=== PATIENT | male | born 1950 | race Caucasian/White ===

== ENCOUNTER 2017-01-13 09:16 | Day surgery (SDC) | payer MEDICAID, MEDICARE ==
[~2017-01-13] VITALS: Ht 167.6 cm; Wt 77.2 kg
[~2017-01-13 09:16] MED LIST: BACL20TA PO; GABA-827 PO
[2017-01-13] MEDS ORDERED: BENZOCAINE AEROSOL SPRAY 20%, 60ML TP PRN (09:30)
[2017-01-13] MEDS ORDERED: SODIUM CHLORIDE 0.9% 1,000 ML IV SCH (09:30)
[2017-01-13] MEDS ORDERED: LIDOCAINE 2% VISCOUS, 100ML MM PRN (09:30)
[2017-01-13] MEDS ORDERED: LISI2.5T PO (09:33)
[2017-01-13] MEDS ORDERED: CARV3.1212 PO (09:33)
[2017-01-13] MEDS ORDERED: CLOP75TA22 PO (09:33)
[2017-01-13] MEDS ORDERED: ASPI-515 PO (09:33)
[2017-01-13] MEDS ORDERED: ATOR80TA PO (09:33)
[2017-01-13 09:43] VITALS: BP 132/98
[2017-01-13] MEDS ORDERED: PLEASE ENTER HEIGHT AND WEIGHT MC SCH (10:00)
[2017-01-13] MEDS ORDERED: PROPOFOL 10 MG/ML, 20ML ONE (10:57)
== END 2017-01-13 12:30 | disposition home or self-care (01) ==
LOC: CACL 09:16
PROVIDERS: ATTEND Internal Medicine Cardiovascular Disease
DX: I34.0 Nonrheumatic mitral (valve) insufficiency (principal); I35.1 Nonrheumatic aortic (valve) insufficiency; I36.1 Nonrheumatic tricuspid (valve) insufficiency; I10 Essential (primary) hypertension; F17.210 Nicotine dependence, cigarettes, uncomplicated; I25.10 Atherosclerotic heart disease of native coronary artery without angina pectoris; I25.2 Old myocardial infarction; I25.5 Ischemic cardiomyopathy; D15.1 Benign neoplasm of heart; Z98.61 Coronary angioplasty status; Z95.0 Presence of cardiac pacemaker; E78.2 Mixed hyperlipidemia
CPT/HCPCS: 93312; 93325; J2704

== ENCOUNTER 2017-03-27 04:19 | Inpatient (IN) | payer MEDICARE ==
[2017-03-26 14:11] LABS: ASPARTATE AMINO TRANSFERASE 15 U/L (15-37); BLOOD UREA NITROGEN 13 mg/dL (7-18)
[~2017-03-27] VITALS: Ht 167.6 cm; Wt 81.8 kg
[~2017-03-27 04:19] MED LIST changes: +ASPI-515 PO; +ATOR80TA PO; +CARV3.1212 PO; +CLOP75TA22 PO; +LISI2.5T PO
[2017-03-27 04:40] VITALS: BP_SYST 113; BP_SYST 119; BP_DIAS 77; BP_DIAS 83
[2017-03-27] MEDS ORDERED: ALBUMIN HUMAN 5% 500 ML IV ONE (05:00)
[2017-03-27] MEDS ORDERED: CHLORHEXIDINE MOUTHWASH 15 ML UDC MM SCH (05:00)
[2017-03-27] MEDS: MUPIROCIN OINT 2%, 22GM TP SCH ×2 (05:44→20:08)
[2017-03-27] MEDS ORDERED: INSULIN ASPART 100 UNITS/ML, PEN SQ-INSULIN SCH (06:00)
[2017-03-27] MEDS ORDERED: FENTANYL PF 1000 MCG/20ML ONE (06:42)
[2017-03-27] MEDS ORDERED: MIDAZOLAM 10MG/2 ML ONE (06:42)
[2017-03-27] MEDS ORDERED: ROCURONIUM 10 MG/ML ONE ×2 (07:15)
[2017-03-27] MEDS ORDERED: EPINEPHRINE 1 MG/ML, 1ML ONE (07:15)
[2017-03-27] MEDS ORDERED: PROPOFOL 10 MG/ML, 20ML ONE ×2 (07:15)
[2017-03-27] MEDS ORDERED: DEXAMETHASONE 4 MG/ML, 1ML ONE (07:15)
[2017-03-27] MEDS ORDERED: PHENYLEPHRINE 10 MG in SODIUM CHLORIDE 0.9% 249 ML IV PRN ×2 (07:30→09:50)
[2017-03-27] MEDS ORDERED: VANCOMYCIN 1,200 MG in SODIUM CHLORIDE 0.9% 250 ML IV PRN (07:30)
[2017-03-27] MEDS ORDERED: POTASSIUM CHLORIDE 80 MEQ, SODIUM BICARBONATE 8.4% 10 MEQ, MAGNESIUM SULFATE 0.5 GM, LI... IV PRN (07:30)
[2017-03-27] MEDS ORDERED: EPINEPHRINE 2 MG in SODIUM CHLORIDE 0.9% 248 ML IV SCH (07:30)
[2017-03-27] MEDS ORDERED: MANNITOL PMX 20% 500 ML IVPB PRN (07:30)
[2017-03-27] MEDS ORDERED: DEXMEDETOMIDINE 200 MCG in SODIUM CHLORIDE 0.9% 48 ML IV SCH (07:30)
[2017-03-27] MEDS ORDERED: REGULAR INSULIN 62.5 UNITS in SODIUM CHLORIDE 0.9% 249.375 ML IV PRN ×2 (07:30→09:50)
[2017-03-27] MEDS ORDERED: PROTAMINE SULFATE 10 MG/ML, 25ML ONE ×2 (08:46)
[2017-03-27] MEDS ORDERED: AMINOCAPROIC ACID 250 MG/ML, 20ML ONE ×2 (08:47)
[2017-03-27] MEDS: SODIUM CHLORIDE FLUSH 10ML SYR IVF SCH ×3 (09:00→20:06)
[2017-03-27] MEDS ORDERED: CALCIUM CHLORIDE 10%, 10ML SYR ONE (09:13)
[2017-03-27] MEDS ORDERED: DOBUTAMINE 250 MG in SODIUM CHLORIDE 0.9% 230 ML IV PRN (09:50)
[2017-03-27] MEDS ORDERED: NITROGLYCERIN/D5W PMX 250 ML IV PRN (09:50)
[2017-03-27] MEDS ORDERED: SODIUM CHLORIDE 0.9% 1,000 ML IV PRN (09:50)
[2017-03-27] MEDS ORDERED: DEXMEDETOMIDINE 200 MCG in SODIUM CHLORIDE 0.9% 48 ML IV PRN (09:50)
[2017-03-27] MEDS ORDERED: SODIUM CHLORIDE 0.9% 1,000 ML IV ONE (09:50)
[2017-03-27] MEDS ORDERED: LIDOCAINE 2% 100MG/5ML SYRINGE ONE (09:52)
[2017-03-27] MEDS ORDERED: SODIUM BICARB 8.4%, 50ML SYRINGE ONE (09:53)
[2017-03-27] MEDS ORDERED: SODIUM BICARBONATE 1 MEQ/ML, 50ML VIAL ONE (09:53)
[2017-03-27] MEDS ORDERED: ALBUMIN HUMAN 25% 50 ML ONE (09:54)
[2017-03-27] MEDS ORDERED: HEPARIN 1,000 UNITS/ML, 30ML ONE (09:54)
[2017-03-27] MEDS ORDERED: SODIUM BICARB 8.4%, 50ML SYRINGE IV PRN (10:00)
[2017-03-27] MEDS ORDERED: LACTATED RINGERS 500 ML IVBOLUS PRN (10:00)
[2017-03-27] MEDS: KSCALE TO 4.5 IV SCH ×3 (10:00→22:00)
[2017-03-27] MEDS ORDERED: PROCHLORPERAZINE 5 MG/ML, 2ML IVPush PRN (10:00)
[2017-03-27] MEDS ORDERED: GLUCAGON 1 MG IM PRN (10:00)
[2017-03-27] MEDS ORDERED: DEXTROSE 4 GM TAB.CHEW PO PRN (10:00)
[2017-03-27] MEDS ORDERED: ACETAMINOPHEN 650 MG SUPP PR PRN (10:00)
[2017-03-27] MEDS ORDERED: ONDANSETRON 2MG/ML, 2ML IVPush PRN (10:00)
[2017-03-27] MEDS ORDERED: MIDAZOLAM 1 MG/ML, 5ML IVPush PRN (10:00)
[2017-03-27] MEDS ORDERED: ACETAMINOPHEN 325 MG TABLET PO PRN (10:00)
[2017-03-27] MEDS ORDERED: MEPERIDINE/PF 25MG/0.5ML IVPush PRN (10:00)
[2017-03-27] MEDS ORDERED: BISACODYL 10 MG SUPP PR PRN (10:00)
[2017-03-27] MEDS ORDERED: DEXTROSE 50%, 50ML SYRINGE IVPush PRN (10:00)
[2017-03-27 10:08] LABS: ABG COLLECTION SITE NOT DOCUMENTED
[2017-03-27] MEDS: morphine SULFATE 10 MG/ML, 1ML IVPush PRN ×2 (11:00→12:25)
[2017-03-27] MEDS: MAGNESIUM SULFATE 1 GM in SODIUM CHLORIDE 0.9% 50 ML IVPB SCH (11:05)
[2017-03-27] MEDS: OXYcodone IR 5MG TABLET PO PRN ×2 (13:44→18:31)
[2017-03-27] MEDS ORDERED: KETOROLAC 30 MG/1 ML IM PRN (15:00)
[2017-03-27] MEDS ORDERED: POTASSIUM CHLORIDE PMX 100 ML IV ONE (17:00)
[2017-03-27] MEDS: CEFUROXIME 1.5 GM in SODIUM CHLORIDE 0.9% 50 ML IVPB SCH (17:45)
[2017-03-27] MEDS: VANCOMYCIN 1,200 MG in SODIUM CHLORIDE 0.9% 250 ML IVPB SCH (19:08)
[2017-03-27] MEDS: MUPIROCIN OINT 2%, 22GM NAS SCH (20:07)
[2017-03-27] MEDS: DOCUSATE 100 MG CAPSULE PO SCH (20:07)
[2017-03-27] MEDS: EPINEPHRINE 2 MG in SODIUM CHLORIDE 0.9% 248 ML IV PRN (20:08)
[2017-03-27] MEDS: HYDROcodone/APAP 10/325 MG TABLET PO PRN (20:59)
[2017-03-28] MEDS: HYDROcodone/APAP 10/325 MG TABLET PO PRN ×2 (01:51→09:00)
[2017-03-28 03:45] VITALS: BP 108/51
[2017-03-28] MEDS: INSULIN ASPART 100 UNITS/ML, PEN SQ-INSULIN PRN ×4 (03:47→16:01)
[2017-03-28 03:50] LABS: ABG COLLECTION SITE NOT DOCUMENTED
[2017-03-28] MEDS: KSCALE TO 4.5 IV SCH ×4 (04:00→22:00)
[2017-03-28 04:03] LABS: BLOOD UREA NITROGEN 8 mg/dL (7-18)
[2017-03-28] MEDS ORDERED: POTASSIUM CHLORIDE PMX 100 ML IV ONE (04:30)
[2017-03-28] MEDS: OXYcodone IR 5MG TABLET PO PRN ×3 (04:46→17:43)
[2017-03-28] MEDS: EPINEPHRINE 2 MG in SODIUM CHLORIDE 0.9% 248 ML IV PRN (06:09)
[2017-03-28] MEDS: CEFUROXIME 1.5 GM in SODIUM CHLORIDE 0.9% 50 ML IVPB SCH (07:07)
[2017-03-28] MEDS: VANCOMYCIN 1,200 MG in SODIUM CHLORIDE 0.9% 250 ML IVPB SCH (08:22)
[2017-03-28] MEDS: SODIUM CHLORIDE FLUSH 10ML SYR IVF SCH ×4 (09:00→21:09)
[2017-03-28] MEDS: DOCUSATE 100 MG CAPSULE PO SCH ×2 (09:50→21:10)
[2017-03-28] MEDS: ASPIRIN 325 MG TABLET EC PO SCH (09:50)
[2017-03-28] MEDS: MUPIROCIN OINT 2%, 22GM NAS SCH ×2 (09:50→21:10)
[2017-03-28] MEDS: PANTOPRAZOLE 40 MG IV IVPush SCH (09:50)
[2017-03-28] MEDS: MAGNESIUM SULFATE 1 GM in SODIUM CHLORIDE 0.9% 50 ML IVPB SCH (10:37)
[2017-03-28] MEDS: CHLORHEXIDINE MOUTHWASH 15 ML UDC MM SCH ×2 (10:38→22:30)
[2017-03-28] MEDS: KETOROLAC 30 MG/1 ML IV PRN (22:19)
[2017-03-29 04:00] VITALS: BP 92/63
[2017-03-29] MEDS: KSCALE TO 4.5 IV SCH ×2 (04:00→04:33)
[2017-03-29] MEDS: KETOROLAC 30 MG/1 ML IV PRN (04:29)
[2017-03-29 05:02] LABS: BLOOD UREA NITROGEN 9 mg/dL (7-18)
[2017-03-29] MEDS: SODIUM CHLORIDE FLUSH 10ML SYR IVF SCH ×2 (09:11)
[2017-03-29] MEDS: PANTOPRAZOLE 40 MG IV IVPush SCH ×2 (09:11→09:43)
[2017-03-29] MEDS: ASPIRIN 325 MG TABLET EC PO SCH (09:12)
[2017-03-29] MEDS: MUPIROCIN OINT 2%, 22GM NAS SCH ×2 (09:12→09:43)
[2017-03-29] MEDS: DOCUSATE 100 MG CAPSULE PO SCH ×2 (09:12→20:49)
[2017-03-29] MEDS: CHLORHEXIDINE MOUTHWASH 15 ML UDC MM SCH ×2 (09:12→20:50)
[2017-03-29] MEDS: HYDROcodone/APAP 10/325 MG TABLET PO PRN ×3 (09:16→20:49)
[2017-03-29] MEDS: MAGNESIUM SULFATE 1 GM in SODIUM CHLORIDE 0.9% 50 ML IVPB SCH (10:37)
[2017-03-29] MEDS: ENOXAPARIN 40 MG/0.4 ML SQ SCH (11:39)
[2017-03-29] MEDS: NICOTINE 14MG/24 HR PATCH.TD24 TD SCH (11:40)
[2017-03-29] MEDS: INSULIN ASPART 100 UNITS/ML, PEN SQ-INSULIN PRN ×2 (11:40→20:50)
[2017-03-29 12:49] VITALS: BP 127/84
[2017-03-29 19:53] VITALS: BP 108/75
[2017-03-30 01:23] VITALS: BP 102/69
[2017-03-30 06:02] LABS: BLOOD UREA NITROGEN 12 mg/dL (7-18)
[2017-03-30] MEDS: HYDROcodone/APAP 10/325 MG TABLET PO PRN ×2 (06:05→22:50)
[2017-03-30] MEDS: INSULIN ASPART 100 UNITS/ML, PEN SQ-INSULIN PRN ×2 (06:13→07:46)
[2017-03-30 07:48] VITALS: BP_SYST 98; BP_SYST 99; BP_DIAS 68
[2017-03-30] MEDS ORDERED: CLOPIDOGREL 75 MG TABLET PO SCH (09:00)
[2017-03-30 09:27] VITALS: BP 119/75
[2017-03-30] MEDS: CLOPIDOGREL 75 MG TABLET PO SCH (09:31)
[2017-03-30] MEDS: BISACODYL 5 MG EC TABLET PO PRN (09:31)
[2017-03-30] MEDS: DOCUSATE 100 MG CAPSULE PO SCH ×2 (09:31→20:53)
[2017-03-30] MEDS: MUPIROCIN OINT 2%, 22GM NAS SCH ×2 (09:31→20:53)
[2017-03-30] MEDS: ASPIRIN 325 MG TABLET EC PO SCH (09:31)
[2017-03-30] MEDS: NICOTINE 14MG/24 HR PATCH.TD24 TD SCH (11:33)
[2017-03-30] MEDS: ENOXAPARIN 40 MG/0.4 ML SQ SCH (11:34)
[2017-03-30 15:17] VITALS: BP 107/71
[2017-03-30 19:52] VITALS: BP 114/77
[2017-03-31] MEDS: OXYcodone IR 5MG TABLET PO PRN (01:17)
[2017-03-31 01:59] VITALS: BP 111/76
[2017-03-31 05:44] LABS: BLOOD UREA NITROGEN 14 mg/dL (7-18)
[2017-03-31 08:10] VITALS: BP 131/76
[2017-03-31] MEDS: PANTOPRAZOLE 40 MG IV IVPush SCH (09:00)
[2017-03-31] MEDS: CLOPIDOGREL 75 MG TABLET PO SCH (09:44)
[2017-03-31] MEDS: ASPIRIN 325 MG TABLET EC PO SCH (09:44)
[2017-03-31] MEDS: MUPIROCIN OINT 2%, 22GM NAS SCH ×2 (09:44→20:52)
[2017-03-31] MEDS: BISACODYL 5 MG EC TABLET PO PRN (09:44)
[2017-03-31] MEDS: DOCUSATE 100 MG CAPSULE PO SCH ×2 (09:44→20:51)
[2017-03-31] MEDS ORDERED: MAGNESIUM HYDROXIDE 8%, 30ML UDC PO PRN (10:00)
[2017-03-31] MEDS: HYDROcodone/APAP 10/325 MG TABLET PO PRN ×2 (11:22→20:51)
[2017-03-31] MEDS: PANTOPROZOLE 40MG TABLET PO SCH (11:22)
[2017-03-31] MEDS: ENOXAPARIN 40 MG/0.4 ML SQ SCH (11:23)
[2017-03-31] MEDS: NICOTINE 14MG/24 HR PATCH.TD24 TD SCH (11:23)
[2017-03-31 12:57] VITALS: BP 114/77
[2017-03-31] MEDS: POTASSIUM CHLORIDE 10 MEQ TABLET.ER PO SCH (18:24)
[2017-03-31 20:28] VITALS: BP 119/81
[2017-03-31] MEDS: FUROSEMIDE 20 MG/2 ML IV SCH (20:52)
[2017-04-01 01:55] VITALS: BP 113/78
[2017-04-01] MEDS: HYDROcodone/APAP 10/325 MG TABLET PO PRN ×2 (04:21→12:08)
[2017-04-01 05:59] LABS: BLOOD UREA NITROGEN 14 mg/dL (7-18)
[2017-04-01 07:50] VITALS: BP 100/60
[2017-04-01] MEDS: DOCUSATE 100 MG CAPSULE PO SCH (08:28)
[2017-04-01] MEDS: POTASSIUM CHLORIDE 10 MEQ TABLET.ER PO SCH (08:28)
[2017-04-01] MEDS: PANTOPROZOLE 40MG TABLET PO SCH (08:28)
[2017-04-01] MEDS: MUPIROCIN OINT 2%, 22GM NAS SCH (08:28)
[2017-04-01] MEDS: CLOPIDOGREL 75 MG TABLET PO SCH (08:28)
[2017-04-01] MEDS: ASPIRIN 325 MG TABLET EC PO SCH (08:28)
[2017-04-01] MEDS: FUROSEMIDE 20 MG/2 ML IV SCH (08:29)
[2017-04-01] MEDS ORDERED: NICO1PAT4 TD (09:19)
[2017-04-01] MEDS: NICOTINE 14MG/24 HR PATCH.TD24 TD SCH (12:09)
[2017-04-01] MEDS ORDERED: HYDR-3307 PO (14:56)
[2017-04-01] MEDS ORDERED: ALPR0.25 PO (14:57)
== END 2017-04-01 16:25 | disposition home health service (06) | DRG 228 ==
LOC: 5SO 04:19 → CCU 08:14 → 5SO 03-29 12:41 → DCLOUNGE 04-01 15:57
PROVIDERS: ADMIT Thoracic Surgery (Cardiothoracic Vascular Surgery); ATTEND Thoracic Surgery (Cardiothoracic Vascular Surgery)
PROC: B245ZZ4 Ultrasonography of Left Heart, Transesophageal (ICD-10-PCS; 2017-03-27)
PROC: 5A1221Z Performance of Cardiac Output, Continuous (ICD-10-PCS; 2017-03-27)
PROC: 02B70ZZ Excision of Left Atrium, Open Approach (ICD-10-PCS; principal; 2017-03-27 07:30)
DX: D15.1 Benign neoplasm of heart (principal); I50.43 Acute on chronic combined systolic (congestive) and diastolic (congestive) heart failure; J98.11 Atelectasis; I27.2 Other secondary pulmonary hypertension; E78.5 Hyperlipidemia, unspecified; F17.200 Nicotine dependence, unspecified, uncomplicated; I07.1 Rheumatic tricuspid insufficiency; I11.0 Hypertensive heart disease with heart failure; I25.5 Ischemic cardiomyopathy; I45.9 Conduction disorder, unspecified; Z95.0 Presence of cardiac pacemaker; I25.2 Old myocardial infarction; Z88.0 Allergy status to penicillin
CPT/HCPCS: 36415; 36600; 71010; 71020; 80048; 80053; 81003; 82040; 82330; 82800; 82803; 82810; 82947; 82962; 83036; 83735; 84132; 84295; 85014; 85018; 85025; 85049; 85347; 85610; 85730; 86850; 86900; 86923; 87081; 88304; 93005; 93312; 93321; 93325; 93880; 94002; J0171; J0697; J1100; J1644; J1650; J1815; J1885; J2250; J2405; J2704; J2720; J3010; J3370; J3475; J3480; J3490; P9045; P9047; C1751; C1760; C9113; J1940; J2270; J2370; J7030; J7050

== ENCOUNTER → 2019-07-15 | Outpatient (CLI) | payer MEDICARE ==
[~2019-07-15] MED LIST changes: +ALPR0.25 PO; -CLOP75TA22 PO; +CLOP75TA52 PO; +HYDR-36 PO; +NICO-486 TD
== END | disposition home or self-care (01) ==
LOC: CFH 09:29
PROVIDERS: ATTEND Internal Medicine Cardiovascular Disease
DX: I08.3 Combined rheumatic disorders of mitral, aortic and tricuspid valves (principal); D15.1 Benign neoplasm of heart; I10 Essential (primary) hypertension; E78.5 Hyperlipidemia, unspecified; F17.200 Nicotine dependence, unspecified, uncomplicated; F15.10 Other stimulant abuse, uncomplicated; Z82.49 Family history of ischemic heart disease and other diseases of the circulatory system
CPT/HCPCS: 93306

== ENCOUNTER 2019-11-16 09:19 | Emergency (ER) | payer MEDICARE, MEDICAID ==
[~2019-11-16] VITALS: Ht 167.6 cm; Wt 79.9 kg
[2019-11-16 09:32] VITALS: BP 149/93
[2019-11-16] MEDS ORDERED: DIAZEPAM 5 MG TABLET ONE (10:54)
[2019-11-16] MEDS ORDERED: OXYcodone/APAP 5/325MG TABLET ONE (10:55)
--- NOTE | 2019-11-16 10:58 | NUR ---
medicated for low back pain, l knee pain, sciatica type pain with numbness to left foot
[2019-11-16] MEDS ORDERED: OXYcodone/APAP 5/325MG TABLET PO ONE (11:00)
[2019-11-16] MEDS ORDERED: DIAZEPAM 5 MG TABLET PO ONE (11:00)
--- NOTE | 2019-11-16 12:23 | NUR ---
some improvement in pain since medicated. states mobility improved as walking to discharge window without assistance
== END 2019-11-16 12:25 | disposition home or self-care (01) ==
LOC: ED 12:19
DX: M25.562 Pain in left knee (principal); M54.5 Low back pain; G89.29 Other chronic pain; I10 Essential (primary) hypertension
CPT/HCPCS: 99283

== ENCOUNTER → 2019-12-30 | Outpatient (CLI) | payer MEDICARE | END | disposition home or self-care (01) | LOC: CFH 08:28 | PROVIDERS: ATTEND Internal Medicine Cardiovascular Disease | DX: I08.1 Rheumatic disorders of both mitral and tricuspid valves (principal); I25.5 Ischemic cardiomyopathy; I10 Essential (primary) hypertension | CPT/HCPCS: 93306 ==

== ENCOUNTER → 2020-12-11 | Outpatient (CLI) | payer MEDICARE, MEDICAID ==
[~2020-12-11] MED LIST changes: -ASPI-515 PO; +ASPI-963 PO; +HYDR-3248 PO; -HYDR-36 PO
== END | disposition home or self-care (01) ==
LOC: CFH 12:39
PROVIDERS: ATTEND Internal Medicine Cardiovascular Disease
DX: I08.3 Combined rheumatic disorders of mitral, aortic and tricuspid valves (principal); I42.9 Cardiomyopathy, unspecified; I27.20 Pulmonary hypertension, unspecified; Z98.61 Coronary angioplasty status
CPT/HCPCS: 93306